=== PATIENT | male | born 2000 | race Caucasian/White ===

== ENCOUNTER 2023-10-05 06:57 | Emergency (ER) | payer OTHER ==
[~2023-10-05] VITALS: Ht 172.7 cm; Wt 80.2 kg
[2023-10-05 10:11] LABS: BASO % 0.4 % (0.0-1.0); EOS # 0.2 10^3/uL (0.0-0.5); EOS % 3.3 % (0.0-3.0); HEMATOCRIT 43.4 % (42.0-52.0); HEMOGLOBIN 15.6 g/dl (13.5-17.5); LYMPH # 2.6 10^3/uL (1.5-5.0); MEAN CORPUSCULAR HEMOGLOBIN 31.1 pg (27.0-33.0); MEAN CORPUSCULAR HGB CONC 35.9 g/dl (32.0-36.5); MEAN CORPUSCULAR VOLUME 86.5 fl (80.0-96.0); MONO # 0.5 10^3/uL (0.0-0.8); NEUTROPHILS # 3.4 10^3/uL (1.5-8.5); NEUTROPHILS % 50.2 % (36.0-66.0); PLATELET COUNT, AUTOMATED 298 10^3/uL (150-450); RED BLOOD COUNT 5.02 10^6/uL (4.30-6.10); WHITE BLOOD COUNT 6.7 10^3/uL (4.0-10.0)
[2023-10-05 10:26] LABS: INR 1.04; PARTIAL THROMBOPLASTIN TIME 31.3 SECONDS (24.8-34.2); PROTHROMBIN TIME 13.3 SECONDS (12.5-14.5)
[2023-10-05 10:30] VITALS: BP 129/76; TEMP 97.5; O2SAT 100
[2023-10-05 10:47] LABS: BLOOD UREA NITROGEN 16 MG/DL (9-23); CALCIUM LEVEL 9.5 MG/DL (8.5-10.1); CARBON DIOXIDE LEVEL 28 MMOL/L (20-31); CHLORIDE LEVEL 106 MMOL/L (98-107); CREATININE FOR GFR 0.83 MG/DL (0.70-1.30); GLOMERULAR FILTRATION RATE > 60.0 (>60); GLUCOSE, FASTING 84 MG/DL (60-100); POTASSIUM SERUM 4.1 MMOL/L (3.5-5.1); SODIUM LEVEL 138 MMOL/L (136-145)
[2023-10-05] MEDS ORDERED: MIRA3350 PO (11:21)
== END 2023-10-05 11:30 | disposition home or self-care (01) ==
LOC: M ED 06:57
DX: K62.5 Hemorrhage of anus and rectum (principal)

== ENCOUNTER 2023-10-10 12:30 | Emergency (ER) | payer OTHER ==
[~2023-10-10] VITALS: Ht 172.7 cm; Wt 81.1 kg
[~2023-10-10 12:30] MED LIST: MIRA3350 PO
[2023-10-10 16:04] LABS: BASO # 0.1 10^3/uL (0.0-0.2); BASO % 0.6 % (0.0-1.0); EOS # 0.4 10^3/uL (0.0-0.5); EOS % 4.4 % (0.0-3.0); HEMATOCRIT 42.8 % (42.0-52.0); HEMOGLOBIN 15.5 g/dl (13.5-17.5); LYMPH # 2.5 10^3/uL (1.5-5.0); LYMPH % 30.6 % (24.0-44.0); MEAN CORPUSCULAR HEMOGLOBIN 31.4 pg (27.0-33.0); MEAN CORPUSCULAR HGB CONC 36.2 g/dl (32.0-36.5); MEAN CORPUSCULAR VOLUME 86.6 fl (80.0-96.0); MONO # 0.7 10^3/uL (0.0-0.8); MONO % 8.4 % (2.0-8.0); NEUTROPHILS # 4.5 10^3/uL (1.5-8.5); NEUTROPHILS % 55.7 % (36.0-66.0); PLATELET COUNT, AUTOMATED 283 10^3/uL (150-450); RED BLOOD COUNT 4.94 10^6/uL (4.30-6.10)
[2023-10-10] MEDS: KETOROLAC 30 MG/ML 1ML VIAL IV ONE ×2 (16:23→19:37)
[2023-10-10 16:25] LABS: CK-MB VALUE MASS < 1.0 NG/ML (<3.6)
[2023-10-10 16:26] LABS: LIPASE 41 U/L (12-53)
[2023-10-10 16:28] LABS: ALBUMIN 4.2 G/DL (3.2-5.2); ALKALINE PHOSPHATASE 85 U/L (46-116); ALT/SGPT 13 U/L (7.0-40); AST/SGOT 9 U/L (<34); BILIRUBIN,DIRECT 0.1 MG/DL (<0.4); BILIRUBIN,TOTAL 0.5 MG/DL (0.3-1.2); BLOOD UREA NITROGEN 16 MG/DL (9-23); CALCIUM LEVEL 9.6 MG/DL (8.5-10.1); CARBON DIOXIDE LEVEL 29 MMOL/L (20-31); CHLORIDE LEVEL 107 MMOL/L (98-107); CREATININE FOR GFR 1.11 MG/DL (0.70-1.30); GLOMERULAR FILTRATION RATE > 60.0 (>60); GLUCOSE, FASTING 91 MG/DL (60-100); POTASSIUM SERUM 4.4 MMOL/L (3.5-5.1); SODIUM LEVEL 141 MMOL/L (136-145)
[2023-10-10 16:29] LABS: CPK CREATINE PHOSPHOKINASE 77 U/L (46-171); MB/CK RELATIVE INDEX 1.29 (< OR =4)
[2023-10-10] MEDS ORDERED: ISOVUE-370 76% 100ML VIAL As Ordered ONE (18:25)
[2023-10-10] MEDS: NS 1,000 ML IV ONE (18:48)
[2023-10-10] MEDS ORDERED: NAPR-885 PO (19:17)
[2023-10-10 19:31] VITALS: BP 109/68; TEMP 98.5; O2SAT 99
== END 2023-10-10 19:47 | disposition home or self-care (01) ==
LOC: M ED 12:30
DX: R07.89 Other chest pain (principal); F10.10 Alcohol abuse, uncomplicated; Z79.899 Other long term (current) drug therapy
CPT/HCPCS: 71045; 71275; 80048; 80076; 82550; 82553; 83690; 84484; 85025; 85379; 93005; 93041; 94760; 96361; 96374; 96375; 99284; J1885; Q9967

== ENCOUNTER 2023-10-15 20:02 | Emergency (ER) | payer OTHER ==
[~2023-10-15] VITALS: Ht 172.7 cm; Wt 81.1 kg
[~2023-10-15 20:02] MED LIST changes: +NAPR-885 PO
[2023-10-15 20:54] LABS: BASO # 0.1 10^3/uL (0.0-0.2); BASO % 0.6 % (0.0-1.0); EOS # 0.3 10^3/uL (0.0-0.5); EOS % 3.7 % (0.0-3.0); HEMATOCRIT 42.1 % (42.0-52.0); HEMOGLOBIN 15.2 g/dl (13.5-17.5); LYMPH # 2.4 10^3/uL (1.5-5.0); LYMPH % 28.5 % (24.0-44.0); MEAN CORPUSCULAR HEMOGLOBIN 31.2 pg (27.0-33.0); MEAN CORPUSCULAR HGB CONC 36.1 g/dl (32.0-36.5); MEAN CORPUSCULAR VOLUME 86.4 fl (80.0-96.0); MONO % 11.3 % (2.0-8.0); NEUTROPHILS # 4.8 10^3/uL (1.5-8.5); NEUTROPHILS % 55.7 % (36.0-66.0); PLATELET COUNT, AUTOMATED 277 10^3/uL (150-450); RED BLOOD COUNT 4.87 10^6/uL (4.30-6.10); WHITE BLOOD COUNT 8.6 10^3/uL (4.0-10.0)
[2023-10-15 21:03] LABS: CK-MB VALUE MASS < 1.0 NG/ML (<3.6)
[2023-10-15 21:04] LABS: BLOOD UREA NITROGEN 24 MG/DL (9-23); CALCIUM LEVEL 9.3 MG/DL (8.5-10.1); CARBON DIOXIDE LEVEL 32 MMOL/L (20-31); CHLORIDE LEVEL 107 MMOL/L (98-107); CPK CREATINE PHOSPHOKINASE 63 U/L (46-171); CREATININE FOR GFR 1.16 MG/DL (0.70-1.30); GLOMERULAR FILTRATION RATE > 60.0 (>60); GLUCOSE, FASTING 75 MG/DL (60-100); MB/CK RELATIVE INDEX 1.58 (< OR =4); POTASSIUM SERUM 4.1 MMOL/L (3.5-5.1); SODIUM LEVEL 140 MMOL/L (136-145)
[2023-10-15 22:11] LABS: CK-MB VALUE MASS < 1.0 NG/ML (<3.6)
[2023-10-15 22:12] LABS: CPK CREATINE PHOSPHOKINASE 58 U/L (46-171); MB/CK RELATIVE INDEX 1.72 (< OR =4)
[2023-10-15] MEDS: LORazepam 0.5 MG TAB PO ONE (23:33)
[2023-10-16] MEDS: KETOROLAC 60MG 2ML VIAL IM ONE (01:12)
[2023-10-16] MEDS ORDERED: KETO10TAB PO (03:02)
[2023-10-16 03:23] VITALS: BP 117/58; TEMP 98.1; O2SAT 99
== END 2023-10-16 03:54 | disposition home or self-care (01) ==
LOC: M ED 20:02
DX: R07.89 Other chest pain (principal); F17.290 Nicotine dependence, other tobacco product, uncomplicated
CPT/HCPCS: 71045; 80048; 82550; 82553; 84484; 85025; 93005; 93041; 94760; 96372; 99285; J1885